=== PATIENT | female | born 1965 | race Two or more races ===

== ENCOUNTER 2018-08-31 12:46 | Emergency (ER) | payer SELFPAY ==
[~2018-08-31] VITALS: Ht 157.5 cm; Wt 49.9 kg
[2018-08-31 12:58] VITALS: BP 127/72
--- NOTE | 2018-08-31 14:28 | Emergency Room Report ---
History of Present Illness General Chief Complaint: Generalized Weakness Source: Patient Present Illness HPI 52-year-old female patient presents ER brought in by ambulance requesting "help getting home". Patient was brought in by ambulance found resting in front of a house, patient reports that she did not call the ambulance. contrary triage report patient denies weakness at this time. Patient states that she was seen by [facility] a few days ago, states she had labs tests done at That Time lab tests were negative and She Was Discharged Home. Patient States That She Is Currently Trying to Find a Way to "Get Back home", States That She lives in [place]. Reports That She Is Unable to Get Transportation on bus or metro Because She Has Her Dog, has dog with Her in the ER Currently. Denies Acute Complaints. Denies Fever, Chest Pain, Shortness of Breath, Abdominal Pain. denies recent trauma or abdominal pain. patient requesting to stay here in the ER until her mother can come pick her up. denies thoughts of hurting himself or others. denies taking any medications Allergies: Coded Allergies: HYDROCODONE (Verified Allergy, Unknown, 08/31/18) Uncoded Allergies: SULFA (Allergy, Unknown, 08/31/18) Patient History Past Medical History: see triage record Now: No Reviewed Nursing Documentation: PMH: Agreed; PSxH: Agreed Nursing Documentation-PMH Past Medical History: No History, Except For Hx Cardiac Problems: Yes - Mitral valve disorder Review of Systems All Other Systems: negative except mentioned in HPI Physical Exam Vital Signs Date Time Temp Pulse Resp B/P (MAP) Pulse Ox O2 Delivery O2 Flow Rate FiO2 08/31/18 12:42 98.4 90 16 127/72 98 Room Air 98.4 Sp02 EP Interpretation: reviewed, normal General Appearance: well appearing, no apparent distress, alert, GCS 15, non- toxic Head: normocephalic, atraumatic Eyes: bilateral eye normal inspection, bilateral eye PERRL ENT: hearing grossly normal, normal pharynx, no angioedema, normal voice, uvula midline, moist mucus membranes Neck: full range of motion Respiratory: lungs clear, normal breath sounds, no rhonchi, no respiratory distress, no accessory muscle use, no wheezing, speaking full sentences Cardiovascular #1: regular rate, rhythm, no edema Gastrointestinal: non tender, soft, no mass, non-distended, no guarding, no rebound Genitourinary: no CVA tenderness Musculoskeletal: back normal, digits/nails normal, gait/station normal, normal range of motion, non-tender Neurologic: alert, oriented x3, responsive, motor strength/tone normal, sensory intact, cerebellar normal, normal gait, speech normal Psychiatric: mood/affect normal Skin: no rash Lymphatic: no adenopathy Medical Decision Making PA Attestation Dr. Guillory is my supervising Physician whom patient management has been discussed with. Diagnostic Impression: Primary Impression: Encounter for well adult exam without abnormal findings ER Course Pt. presents to the ED requesting help getting home. multiple differentials considered. Vital signs: are WNL, pt. is afebrile ER COURSE: PE benign, no focal neuro deficits, patient alert and oriented. denies acute symptoms. Patient states that she "needs help getting home." patient is able to answer questions without difficulty, denies SI or HI, denies melena patient is to injure himself or others at this time. Do not believe patient requires labs workup at this time. patient observed resting comfortably in bed in no acute distress. Patient able to talk on the phone without difficulty. patient called and spoke with the mother on the phone, patient states mother is going to come pick her up but will not be able to get her until . Contacted social work to help assist patient with living placement. Patient observed eating and drinking without difficulty. after consultation with social work, able to find placement for patient, patient will be provided with Transportation to the facility. patient resting comfortably in acute distress nontoxic appearing. patient okay to be discharged. DISCHARGE: At this time pt is stable for d/c to home. Patient is resting comfortably, in no acute distress, nontoxic appearing, talking without difficulty. Patient to take medications as instructed Will provide with patient care instructions and any necessary prescriptions. Care plan and follow-up instructions provided. Patient instructed to follow-up with primary care provider in 3 - 5 days. Patient questions asked and answered. Patient reports understanding and agreement to treatment plan. ER precautions given. Patient instructed to return to ER immediately for any new or worsening of symptoms including but not limited to increasing SOB, persistent fever, chest pain, intractable vomiting. - Please note that this Emergency Department Report was dictated using ME911 technology software, occasionally this can lead to erroneous entry secondary to interpretation by the dictation equipment. Last Vital Signs Date Time Temp Pulse Resp B/P (MAP) Pulse Ox O2 Delivery O2 Flow Rate FiO2 08/31/18 12:58 98.4 90 16 127/72 98 Room Air 98.4 Disposition: HOME, SELF-CARE Condition: Stable Additional Instructions: Followup with primary care provider in 3 -5 days. Take medications as directed. Patient questions asked and answered. ER precautions given, patient instructed to return to ER immediately for any new or worsening of symptoms. Matt Balderas Aug 31, 2018 14:28
[2018-08-31 17:09] VITALS: BP 125/70
[2018-08-31 19:02] VITALS: BP 125/70
== END 2018-08-31 18:00 | disposition home or self-care (01) ==
LOC: EDBD 12:46 → EMR 14:49
DX: Z00.00 Encounter for general adult medical examination without abnormal findings (principal); R53.1 Weakness; Z88.2 Allergy status to sulfonamides; Z88.5 Allergy status to narcotic agent
CPT/HCPCS: 99283